=== PATIENT | male | born 1990 | race African-American/Black ===

== ENCOUNTER 2018-05-24 12:20 | Outpatient (CLI) | payer OTHER ==
[~2018-05-24 12:20] MED LIST: BUFFERED LIDOCAINE 10 ML SYRINGE ONE; GADOPENTETATE DIMEGLUMINE 5 ML VIAL IVP ONE; IOTHALAMATE MEGLUMINE 50 ML VIAL ONE
--- NOTE | 2018-05-24 14:08 | MRI Report ---
Reason: PAIN IN UNSPECIFIED SHOULDER Procedure Date: 05/24/2018 Accession Number: [id number] / [id number] Procedure: MRI - Cervical Spine W/O CPT Code: FULL RESULT: EXAM: MRI CERVICAL SPINE WITHOUT CONTRAST EXAM DATE: 05/24/2018 01:07 PM. CLINICAL HISTORY: 28-year-old male. Bilateral shoulder pain, right greater than left. COMPARISONS: None. TECHNIQUE: Multiplanar, multisequence T1-weighted and fluid-sensitive sequences of the cervical spine without contrast. Other: None. FINDINGS: Neurologic Structures: The visualized posterior fossa structures are unremarkable. No signal abnormality in the visualized spinal cord. Alignment: No scoliosis or spondylolisthesis. Bone Marrow: No gross fractures or bone lesions. No marrow edema. 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 Interspace Levels/Facets: C1-C2: Unremarkable. C2-C3: Unremarkable. C3-C4: Minimal diffuse disposed. Mild central canal narrowing. No foraminal narrowing. C4-C5: Minimal diffuse disk bulge with an annular fissure. Mild central canal narrowing. No foraminal narrowing. C5-C6: Moderate diffuse disk bulge. Mild to moderate central canal narrowing. No foraminal narrowing. C6-C7: Unremarkable. C7-T1: Unremarkable. Musculature: Normal. No edema or fatty atrophy. Other: The paravertebral and prevertebral soft tissues are normal. IMPRESSION: 1. Mild degenerative changes at C3-C4 through C5-C6 levels, as detailed above. 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 Mild central canal narrowing at C3-C4, C4-C5 levels. Mild to moderate central canal narrowing at C5-C6 level. No foraminal narrowing at these or any other cervical levels. 2. No evidence of acute fracture or malalignment. No bone marrow edema. No cord signal abnormality. [facility]
== END 2018-05-24 12:21 | disposition home or self-care (01) ==
LOC: DI 12:20
PROVIDERS: ATTEND General Practice
DX: M50.31 Other cervical disc degeneration, high cervical region (principal); M48.02 Spinal stenosis, cervical region
CPT/HCPCS: 72141

== ENCOUNTER 2019-01-15 12:18 | Outpatient (CLI) | payer OTHER ==
[2019-01-15] MEDS ORDERED: BUFFERED LIDOCAINE 10 ML SYRINGE ONE (13:11)
[2019-01-15] MEDS ORDERED: IOTHALAMATE MEGLUMINE 50 ML VIAL ONE (13:12)
[2019-01-15] MEDS ORDERED: GADOPENTETATE DIMEGLUMINE 5 ML VIAL IVP ONE ×2 (13:12→15:26)
[2019-01-15] MEDS ORDERED: BUPIVACAINE 0.5%-EPI 1:200000 PF 10 ML VIAL ONE (14:10)
[2019-01-15] MEDS ORDERED: BUFFERED LIDOCAINE 10 ML SYRINGE IU ONE (15:12)
[2019-01-15] MEDS ORDERED: IOTHALAMATE MEGLUMINE 50 ML VIAL IVP ONE (15:12)
[2019-01-15] MEDS ORDERED: BUPIVACAINE 0.5%-EPI 1:200000 PF 10 ML VIAL IS ONE (15:26)
--- NOTE | 2019-01-16 13:02 | MRI Report ---
Reason: PAIN IN SHOULDER Procedure Date: 01/15/2019 Accession Number: [id number] / [id number] Procedure: MRI - Arthrogram Shoulder RT CPT Code: FULL RESULT: EXAM: RIGHT SHOULDER MRI ARTHROGRAM WITH CONTRAST EXAM DATE: 01/15/2019 03:00 PM. CLINICAL HISTORY: Pain in shoulder. COMPARISON: None. TECHNIQUE: Multiplanar, multisequence T1-weighted and fluid-sensitive sequences of the shoulder after an arthrographic injection of dilute gadolinium, dictated under a separate exam. Other: None. FINDINGS: Acromioclavicular Region: The acromion is type II with anterior medial downsloping. Minimal degenerative change at the acromioclavicular joint with subtle inferiorly directed osteophytes. Mildly thickened coracoacromial ligament. Small amount of fluid without contrast in the subacromial/subdeltoid bursa. Glenohumeral Region: No subluxation. No loose bodies. Shallow partial-thickness cartilage loss. Distortion at the superior and middle glenohumeral ligaments, likely due to contrast administration. Bone Marrow: Moderate bone marrow edema and small cysts at the anterior aspect greater tuberosity, likely reactive. Labrum: Mild blunting and irregularity posterior superior aspect with subtle free edge tear. Mild fraying and irregularity at the posterior inferior aspect. Biceps Tendon: The long head of the biceps tendon and biceps jessica are intact. Musculature/Rotator Cuff: Moderate supraspinatus tendinopathy. Small shallow partial-thickness intrasubstance tear at the central insertion. Subtle focal shallow articular surface tear posterior fibers at the level of the acromion (sagittal images 8 through 10). Mild infraspinatus tendinopathy. Small shallow intrasubstance tear at the posterior insertion. Teres minor tendon intact. Mild thickening and contrast imbibition at the superior fibers subscapularis insertion, likely due to contrast administration. This limits evaluation for underlying tendinopathy and/or tear. No edema or fatty atrophy. Other: The subcutaneous tissues are unremarkable. IMPRESSION: 1. Moderate supraspinatus tendinopathy with shallow partial-thickness intrasubstance tear central insertion. Subtle shallow articular surface tear posterior fibers. 2. Mild infraspinatus tendinopathy with shallow partial-thickness intrasubstance tear posterior insertion. 3. Degenerative fraying of the labrum with subtle free edge tear posterior superior aspect. 4. Minimal subacromial subdeltoid bursitis. 5. Minimal acromioclavicular degenerative change. 6. Anterior and medial downsloping of the acromion and thickened coracoacromial ligament may contribute to symptoms of impingement. [facility]
--- NOTE | 2019-01-16 14:57 | XRAY Report ---
Reason: PAIN IN SHOULDER Procedure Date: 01/15/2019 Accession Number: [id number] / [id number] Procedure: FL - Arthrogram Needle Placement CPT Code: FULL RESULT: EXAM: RIGHT SHOULDER ARTHROGRAPHIC INJECTION WITH FLUOROSCOPIC GUIDANCE EXAM DATE: 01/15/2019 02:31 PM. CLINICAL HISTORY: PAIN IN SHOULDER. COMPARISON: None. TECHNIQUE: The risks, benefits, and alternatives of the procedure were discussed with the patient. All questions were answered. Written and verbal consent were obtained. The right glenohumeral joint was marked under fluoroscopy and prepped and draped in a sterile manner. Local anesthesia was performed with 1% lidocaine. A 22-gauge needle was then inserted into the glenohumeral joint. 10 mL of a solution containing 25% 1% lidocaine, 25% iodinated contrast, and a 1:200 dilution of gadolinium contrast in sterile saline was then injected. The needle was removed without immediate complication. Other: None. Fluoroscopy Time: 25 seconds. Number of Images: 4. FINDINGS: Bones and joints: No fracture or subluxation. Injection: Fluoroscopic images demonstrate needle placement and contrast in the glenohumeral joint. No contrast extravasation outside of the glenohumeral joint. IMPRESSION: Successful fluoroscopically guided arthrographic injection of the right shoulder. [facility]
== END 2019-01-15 12:19 | disposition home or self-care (01) ==
LOC: DI 12:18
PROVIDERS: ATTEND General Practice
DX: M75.101 Unspecified rotator cuff tear or rupture of right shoulder, not specified as traumatic (principal); S43.491A Other sprain of right shoulder joint, initial encounter; M75.51 Bursitis of right shoulder; M19.011 Primary osteoarthritis, right shoulder
CPT/HCPCS: 23350; 73222; 77002; Q9961